=== PATIENT | female | born 1960 | race Caucasian/White ===

== ENCOUNTER → 2018-03-21 | Outpatient (CLI) | payer MEDICARE | END | disposition home or self-care (01) | LOC: LAB 11:21 → LAB SHORT 11:21 | DX: R05 Cough (principal) | CPT/HCPCS: 87798 ==

== ENCOUNTER 2020-08-18 05:47 | Day surgery (SDC) | payer MEDICARE ==
[~2020-08-18] VITALS: Wt 122.0 kg
[2020-08-18] MEDS ORDERED: Aspir 8181 MG PO (06:56)
--- NOTE | 2020-08-18 08:20 | NUR ---
PT AWAKE AND VERBALIZING WELL.
--- NOTE | 2020-08-18 08:35 | NUR ---
PT AMB TO BATHROOM /C SBA. TOLERATED WELL. STABLE GAIT.
--- NOTE | 2020-08-18 09:28 | NUR ---
PT VERBALIZED UNDERSTANDING OR WRITTEN AND VERBAL D/C INST. IV REMOVED. PT TAKEN OUT OF THE HRT CENTER VIA W/C.
== END 2020-08-18 12:00 | disposition home or self-care (01) ==
LOC: MHTC 05:47
DX: I35.8 Other nonrheumatic aortic valve disorders (principal); I70.0 Atherosclerosis of aorta; I37.1 Nonrheumatic pulmonary valve insufficiency; I10 Essential (primary) hypertension; E78.5 Hyperlipidemia, unspecified; E66.01 Morbid (severe) obesity due to excess calories; Z68.41 Body mass index [BMI] 40.0-44.9, adult; Z79.899 Other long term (current) drug therapy; Z82.49 Family history of ischemic heart disease and other diseases of the circulatory system
CPT/HCPCS: 93325; C8925; J2704; J7030

== ENCOUNTER → 2023-11-03 | Outpatient (CLI) | payer MEDICARE ==
[~2023-11-03] MED LIST: Aspir 8181 MG PO
[2023-11-03 12:09] LABS: BASOPHILS ABSOLUTE AUTO 0.03 K/mm3 (0.00-0.23); BASOPHILS PERCENT AUTO 1 % (0-2); EOSINOPHILS ABSOLUTE AUTO 0.15 K/mm3 (0.00-0.68); EOSINOPHILS PERCENT AUTO 3 % (0-6); Hematocrit 39.7 % (33.0-51.0); IMMATURE GRAN ABSOLUTE AUTO 0.01 K/mm3 (0.00-0.10); IMMATURE GRAN PERCENT AUTO 0 % (0-1); LYMPHOCYTES ABSOLUTE AUTO 1.96 K/mm3 (0.84-5.20); LYMPHOCYTES PERCENT AUTO 33 % (21-46); MONOCYTES PERCENT AUTO 7 % (4-13); Mean Corpuscular HGB 27.9 pg (26.0-34.0); Mean Corpuscular HGB Conc 32.7 g/dL (31.5-36.5); Mean Corpuscular Volume 85 fL (80-100); Mean Platelet Volume 12.3 fL (9.1-12.4); NEUTROPHILS ABSOLUTE AUTO 3.44 K/mm3 (1.96-9.15); NEUTROPHILS PERCENT AUTO 57 % (41-73); Platelet Count 226 K/mm3 (150-400); RDW Coefficient Variation 13.8 % (11.7-14.2); Red Blood Cell Count 4.66 M/mm3 (3.80-5.20); White Blood Cell Count 5.99 K/mm3 (4.00-11.30)
[2023-11-04 09:14] LABS: A/G RATIO 1.3 (1.2-2.2); BILIRUBIN, TOTAL 0.4 mg/dL (0.0-1.2); CALCIUM, SERUM 9.8 mg/dL (8.7-10.3); CREATININE, SERUM 0.9 mg/dL (0.57-1.00); GLOBULIN, TOTAL 3.3 g/dL (1.5-4.5); POTASSIUM, SERUM 4.5 mmol/L (3.5-5.2); PROTEIN, TOTAL, SERUM 7.7 g/dL (6.0-8.5)
== END ==
LOC: LAB SHORT 10:55
PROVIDERS: Family Medicine
DX: R10.32 Left lower quadrant pain (principal)
CPT/HCPCS: 80053; 85025

== ENCOUNTER 2025-04-17 04:01 | Day surgery (SDC) | payer OTHER ==
[~2025-04-17 04:01] MED LIST changes: +CYMBALTA30 M2 PO; +DULO30 PO; +ROSU5 PO
[2025-04-17] MEDS ORDERED: INCLISIRAN SODIUM 284 MG/1.5 ML SYRINGE SC SCH (06:00)
== END 2025-04-17 23:00 | disposition home or self-care (01) ==
LOC: ATC 04:01
DX: E78.5 Hyperlipidemia, unspecified (principal); M79.7 Fibromyalgia; M25.541 Pain in joints of right hand; M25.542 Pain in joints of left hand; M16.11 Unilateral primary osteoarthritis, right hip; M19.041 Primary osteoarthritis, right hand; K21.9 Gastro-esophageal reflux disease without esophagitis; Z79.899 Other long term (current) drug therapy; Z88.8 Allergy status to other drugs, medicaments and biological substances; Z96.651 Presence of right artificial knee joint; Z96.652 Presence of left artificial knee joint; Z98.1 Arthrodesis status